=== PATIENT | male | born 1960 | race Caucasian/White ===

== ENCOUNTER → 2020-08-24 | Outpatient (CLI) | payer OTHER | END | disposition home or self-care (01) | LOC: WOUND 12:19 | PROVIDERS: ATTEND Internal Medicine | DX: S71.102A Unspecified open wound, left thigh, initial encounter (principal); L03.116 Cellulitis of left lower limb; R21 Rash and other nonspecific skin eruption; E78.5 Hyperlipidemia, unspecified; X58.XXXA Exposure to other specified factors, initial encounter; Y93.89 Activity, other specified; Y92.89 Other specified places as the place of occurrence of the external cause; Y99.8 Other external cause status | CPT/HCPCS: 97597; 99205 ==

== ENCOUNTER → 2020-08-31 | Outpatient (CLI) | payer OTHER | END | disposition home or self-care (01) | LOC: WOUND 13:03 | PROVIDERS: ATTEND Internal Medicine | DX: S71.102D Unspecified open wound, left thigh, subsequent encounter (principal); L03.116 Cellulitis of left lower limb; R21 Rash and other nonspecific skin eruption; E78.5 Hyperlipidemia, unspecified; X58.XXXD Exposure to other specified factors, subsequent encounter | CPT/HCPCS: 99213 ==